=== PATIENT | female | born 1955 | race Asian ===

== ENCOUNTER 2017-07-21 09:34 | Day surgery (SDC) | payer OTHER ==
[~2017-07-21] VITALS: Ht 154.9 cm; Wt 42.8 kg
[2017-07-21] MEDS ORDERED: PROPOFOL 40 ML ONE (09:57)
[2017-07-21 10:29] VITALS: Ht 154.9 cm; Wt 42.8 kg
[2017-07-21] MEDS ORDERED: [UNRECOGNIZED DRUG - OTHER] (10:46)
[2017-07-21] MEDS ORDERED: CHOLESTEROL MED. (10:46)
[2017-07-21] MEDS ORDERED: PROPOFOL 20 ML ONE (11:34)
--- NOTE | 2017-07-21 11:38 | OPPN ---
Date/Time of Note Date/Time of Note DATE: 07/21/17 TIME: 11:37 Proc Note GI Procedure Date 07/21/17 Indication: screening/surveillance, diagnostic Pre-procedure Diagnosis Dysphagia Post-procedure Diagnosis Eosinophilic esophagitis Diverticulosis Hemorrhoids Procedure Performed: Endoscopy, Colonoscopy Surgeon see signature line Arborist Climber none Anesthesia Type: MAC Tourniquet Time none EBL none Transfusion required none Biopsy 1: 4 biopsies from the stomach Biopsy 2: Biopsy from the GE junction Grafts/Implants none Tubes/Drains none Complication(s) none Disposition: home Procedure Description See dictated report ELIN BURKS MD Jul 21, 2017 11:38
--- NOTE | 2017-07-21 11:38 | OPPN ---
Date/Time of Note Date/Time of Note DATE: 07/21/17 TIME: 11:37 Proc Note GI Procedure Date 07/21/17 Indication: screening/surveillance, diagnostic Pre-procedure Diagnosis Dysphagia Post-procedure Diagnosis Eosinophilic esophagitis Diverticulosis Hemorrhoids Procedure Performed: Endoscopy, Colonoscopy Surgeon see signature line Internist none Anesthesia Type: MAC Tourniquet Time none EBL none Transfusion required none Biopsy 1: 4 biopsies from the stomach Biopsy 2: Biopsy from the GE junction Grafts/Implants none Tubes/Drains none Complication(s) none Disposition: home Procedure Description See dictated report ELIN BURKS MD Jul 21, 2017 11:38
[2017-07-21 12:11] VITALS: BP 126/78; RESP 14
--- NOTE | 2017-07-22 02:50 | GILP ---
DATE OF PROCEDURE: PROCEDURES: Esophagogastroduodenoscopy with biopsy and colonoscopy. INDICATION: The patient is a 61-year-old female undergoing this procedure for dysphagia and colon c ancer screening. The risks of the procedure, related and unrelated complications, anesthetic risks, alternatives discussed, and informed consent was obtained. DESCRIPTION OF PROCEDURE: The patient was brought to the GI lab, sedated by Dr. Tran. After optimum sedation, scope was passed with much ease into the esophagus which endoscopically consistent with d iagnosis of eosinophilic esophagitis. The patient had multiple rings identified in the distal part of the esophagus, and there was also an element of esophagitis with linear hyperemic ulceration. Th e Z line had a ring, nonobstructing. Biopsy was taken; one to break the ring and another to confirm the diagnosis of eosinophilic esophagitis. Stomach mucosa revealed moderate to severe gastritis. Three to 4 biopsies obtained to rule out H. pylori infection. Duodenum, first and second part, appe ared normal. Retroflexion was normal. Scope was straightened out and removed with good patient nora erance. IMPRESSION: 1. Endoscopically eosinophilic esophagitis. 2. Hyperemic superficial ulceration distal part of the esophagus consistent with diagnosis of esoph agitis. 3. Ring, nonobstructing, which was biopsied at the GE junction. 4. Moderate to severe gastritis. 5. Normal duodenum. PLAN: Review histopathology. Start the patient on PPI. If the patient does not respond to PPI, th en will use fluticasone. COLONOSCOPY REPORT: The patient was turned around. Scope was passed with much ease into rectum and advanced through a difficult spastic colon all the way into the cecum. Patient position had to be changed. Appendiceal orifice and IC valve were normal. Terminal ileum was normal. A few diverticu la were identified, both in the cecum and also scattered. Rest of the colon appeared normal. Hemor rhoids identified. Rectal examination was normal. IMPRESSION: 1. Hemorrhoids. 2. Diverticulosis. 3. Normal terminal ileum. 4. Normal colon. 5. Clarity and cleanliness was good. 6. Significance spasm identified. PLAN: The patient is to stay on high fiber diet. Dictated By: ELIN OAKLEY/CHRIS Conf#: [id number] DID#: [id number]
== END 2017-07-21 17:34 | disposition home or self-care (01) ==
LOC: GIL 09:34
PROVIDERS: ATTEND Internal Medicine Gastroenterology
DX: Z12.11 Encounter for screening for malignant neoplasm of colon (principal); K21.0 Gastro-esophageal reflux disease with esophagitis; K29.60 Other gastritis without bleeding; K22.10 Ulcer of esophagus without bleeding; K64.9 Unspecified hemorrhoids; K57.90 Diverticulosis of intestine, part unspecified, without perforation or abscess without bleeding
CPT/HCPCS: 43239; 45378; 88305; 88312; 88313; Z7610